=== PATIENT | female | born 1990 | race Caucasian/White ===

== ENCOUNTER 2017-11-23 21:23 | Emergency (ER) | payer BC ==
--- NOTE | 2017-11-23 22:17 | EDM.PDOC ---
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 Stated Complaint: LIGHT PAIN IN STOMACH Time Seen by Provider: 11/23/17 22:15 - History of Present Illness INITIAL COMMENTS - FREE TEXT/NARRATIVE: Entered room to evaluate patient and she had signed out AMA screening exam ED ROS GENERAL - Review of Systems Review Of Systems: See Below (se dictation) ED EXAM - Physical Exam Exam: See Below (see dictation) Departure - Departure Time of Disposition: 22:15 Disposition: Eloped 07 Condition: Good Clinical Impression: Encounter for medical screening examination - Discharge Information Referrals: PCP,None [Primary Care Provider] - Forms: ED Department Discharge, Refusal Medical Screening
== END 2017-11-23 22:19 | disposition left against medical advice (07) ==
LOC: MW.ED 21:23
DX: Z53.21 Procedure and treatment not carried out due to patient leaving prior to being seen by health care provider (principal)

== ENCOUNTER 2017-11-24 14:27 | Emergency (ER) | payer BC ==
--- NOTE | 2017-11-24 14:58 | EDM.PDOC ---
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 This is her first . She had her visit with Dr. Douglass's staff and has an OB visit scheduled for mid November She had some blood on the tissue today when she wiped Review of Systems: As per history of present illness and below otherwise all systems reviewed and negative. Past medical history: As per history of present illness and as reviewed below otherwise noncontributory. Surgical history: As per history of present illness and as reviewed below otherwise noncontributory. Social history: No reported history of drug or alcohol abuse. Family history: As per history of present illness and as reviewed below otherwise noncontributory. Physical exam: Alert and oriented female answering questions appropriately in full sentences without any shortness of breath. She is nontoxic in appearance. She is anxious. Skin is warm and dry. HEENT: Atraumatic, normocehpalic, pupils reactive, negative for conjunctival pallor or scleral icterus, mucous membranes moist, throat clear, neck supple, nontender, trachea midline. Lungs: Clear to auscultation, breath sounds equal bilaterally, chest non tender. Heart: S1S2, regular, negative for clicks, rubs, or JVD. Abdomen: Soft, nondistended, nontender. Negative for masses or hepatossplenmegaly. Negative for costovertebral tenderness. Pelvis: Stable nontender. Genitourinary: Deferred. Rectal: Deferred Extremities: Atraumatic, negative for cords or calf pain. Neurovascular unremarkable. Neuro: Awake, alert, oriented. Cranial nerves II through XII unremarkable. Cerebellum unremarkable. Motor and sensory unremarkable throughout. Exam nonfocal. Have discussed with patient that there are no signs of at this time. Her levels have decreased to 15. It is likely that she will have some bleeding. She is to follow-up with her CLAIMS VICE PRESIDENT. Diagnostics: []ua urine culture, abo/rh cbc ob first trimester US Therapeutics: [] Impression: [Miscarriage Plan: []home Tylenol alternating with ibuprofen every 3 hours for discomfort Follow-up with your CLAIMS VICE PRESIDENT call the clinic for an appointment tell them that you are in the emergency room Definitive disposition and diagnosis as appropriate pending reevaluation and review of above. 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 ED EXAM - Physical Exam Exam: See Below Course - Vital Signs Last Recorded V/S: Last Vital Signs Temp 36.3 C 11/24/17 14:39 Pulse 93 11/24/17 14:39 Resp 18 11/24/17 14:39 BP 124/91 H 11/24/17 14:39 Pulse Ox 100 11/24/17 14:39 - Orders/Labs/Meds Orders: Active Orders 24 hr Category Date Time Status OB 1st Tri Sgl 1st Gest [US] Stat Exams 11/24/17 14:54 Taken CULTURE URINE [RM] Stat Lab 11/24/17 15:10 Received UA W/MICROSCOPIC [URIN] Stat Lab 11/24/17 15:10 Ordered Labs: Laboratory Tests 11/24/17 11/24/17 11/24/17 Range/Units 14:47 14:47 14:47 WBC 6.44 (4.0-11.0) K/uL RBC 4.41 (4.30-5.90) M/uL Hgb 13.2 (12.0-16.0) g/dL Hct 38.3 (36.0-46.0) % MCV 86.8 (80.0-98.0) fL MCH 29.9 (27.0-32.0) pg MCHC 34.5 (31.0-37.0) g/dL RDW Std Deviation 39.6 (28.0-62.0) fl RDW Coeff of Yamel 13 (11.0-15.0) % Plt Count 235 (150-400) K/uL MPV 9.60 (7.40-12.00) fL Neut % (Auto) 56.8 (48.0-80.0) % Lymph % (Auto) 32.5 (16.0-40.0) % [place] % (Auto) 9.0 (0.0-15.0) % Eos % (Auto) 1.2 (0.0-7.0) % Baso % (Auto) 0.5 (0.0-1.5) % Neut # (Auto) 3.7 (1.4-5.7) K/uL Lymph # (Auto) 2.1 (0.6-2.4) K/uL [place] # (Auto) 0.6 (0.0-0.8) K/uL Eos # (Auto) 0.1 (0.0-0.7) K/uL Baso # (Auto) 0.0 (0.0-0.1) K/uL Nucleated RBC % 0.0 /100WBC Nucleated RBCs # 0 K/uL Sodium 137 (136-145) mmol/L Potassium 3.7 (3.5-5.1) mmol/L Chloride 104 (98-107) mmol/L Carbon Dioxide 27.3 (21.0-32.0) mmol/L BUN 5 L (7.0-18.0) mg/dL Creatinine 0.6 (0.6-1.0) mg/dL Est Cr Clr Drug Dosing 122.69 mL/min Estimated GFR (MDRD) > 60.0 ml/min Glucose 84 (74-106) mg/dL Calcium 9.7 (8.5-10.1) mg/dL Total Bilirubin 0.3 (0.2-1.0) mg/dL AST 16 (15-37) IU/L ALT 24 (14-63) IU/L Alkaline Phosphatase 83 (46-116) U/L Total Protein 8.0 (6.4-8.2) g/dL Albumin 3.7 (3.4-5.0) g/dL Globulin 4.3 H (2.0-3.5) g/dL Albumin/Globulin Ratio 0.9 L (1.3-2.8) HCG, Quant mIU/mL Urine Color Urine Appearance Urine pH (5.0-8.0) Ur Specific [place] (1.001-1.035) Urine Protein (NEGATIVE) mg/dL Urine Glucose (UA) (NEGATIVE) mg/dL Urine Ketones (NEGATIVE) mg/dL Urine Occult Blood (NEGATIVE) Urine Nitrite (NEGATIVE) Urine Bilirubin (NEGATIVE) Urine Urobilinogen (<2.0) EU/dL Ur Leukocyte Esterase (NEGATIVE) Urine RBC (0-2/HPF) Urine WBC (0-5/HPF) Ur Epithelial Cells (NONE-FEW) Urine Bacteria (NEGATIVE) Blood Type O NEGATIVE 11/24/17 11/24/17 Range/Units 14:47 15:10 WBC (4.0-11.0) K/uL RBC (4.30-5.90) M/uL Hgb (12.0-16.0) g/dL Hct (36.0-46.0) % MCV (80.0-98.0) fL MCH (27.0-32.0) pg MCHC (31.0-37.0) g/dL RDW Std Deviation (28.0-62.0) fl RDW Coeff of [place]amel (11.0-15.0) % Plt Count (150-400) K/uL MPV (7.40-12.00) fL Neut % (Auto) (48.0-80.0) % Lymph % (Auto) (16.0-40.0) % [place] % (Auto) (0.0-15.0) % Eos % (Auto) (0.0-7.0) % Baso % (Auto) (0.0-1.5) % Neut # (Auto) (1.4-5.7) K/uL Lymph # (Auto) (0.6-2.4) K/uL [place] # (Auto) (0.0-0.8) K/uL Eos # (Auto) (0.0-0.7) K/uL Baso # (Auto) (0.0-0.1) K/uL Nucleated RBC % /100WBC Nucleated RBCs # K/uL Sodium (136-145) mmol/L Potassium (3.5-5.1) mmol/L Chloride (98-107) mmol/L Carbon Dioxide (21.0-32.0) mmol/L BUN (7.0-18.0) mg/dL Creatinine (0.6-1.0) mg/dL Est Cr Clr Drug Dosing mL/min Estimated GFR (MDRD) ml/min Glucose (74-106) mg/dL Calcium (8.5-10.1) mg/dL Total Bilirubin (0.2-1.0) mg/dL AST (15-37) IU/L ALT (14-63) IU/L Alkaline Phosphatase (46-116) U/L Total Protein (6.4-8.2) g/dL Albumin (3.4-5.0) g/dL Globulin (2.0-3.5) g/dL Albumin/Globulin Ratio (1.3-2.8) HCG, Quant 15.0 mIU/mL Urine Color YELLOW Urine Appearance CLEAR Urine pH 7.5 (5.0-8.0) Ur Specific [place] <= 1.005 (1.001-1.035) Urine Protein NEGATIVE (NEGATIVE) mg/dL Urine Glucose (UA) NEGATIVE (NEGATIVE) mg/dL Urine Ketones NEGATIVE (NEGATIVE) mg/dL Urine Occult Blood NEGATIVE (NEGATIVE) Urine Nitrite NEGATIVE (NEGATIVE) Urine Bilirubin NEGATIVE (NEGATIVE) Urine Urobilinogen 0.2 (<2.0) EU/dL Ur Leukocyte Esterase NEGATIVE (NEGATIVE) Urine RBC 0-1 (0-2/HPF) Urine WBC 0-1 (0-5/HPF) Ur Epithelial Cells OCCASIONAL (NONE-FEW) Urine Bacteria RARE (NEGATIVE) Blood Type Departure - Departure Time of Disposition: 16:14 Disposition: Home, Self-Care 01 Condition: Good Clinical Impression: Threatened - Discharge Information *PRESCRIPTION DRUG MONITORING PROGRAM REVIEWED*: Not Applicable *COPY OF PRESCRIPTION DRUG MONITORING REPORT IN PATIENT WILL: Not Applicable Instructions: Pelvic Rest Referrals: PCP,None [Primary Care Provider] - Forms: ED Department Discharge Additional Instructions: The following information is given to patients seen in the emergency department who are being discharged to home. This information is to outline your options for follow-up care. We provide all patients seen in our emergency department with a follow-up referral. The need for follow-up, as well as the timing and circumstances, are variable depending upon the specifics of your emergency department visit. If you don't have a primary care physician on staff, we will provide you with a referral. We always advise you to contact your personal physician following an emergency department visit to inform them of the circumstance of the visit and for follow-up with them and/or the need for any referrals to a consulting specialist. The emergency department will also refer you to a specialist when appropriate. This referral assures that you have the opportunity for followup care with a specialist. All of these measure are taken in an effort to provide you with optimal care, which includes your followup. Under all circumstances we always encourage you to contact your private physician who remains a resource for coordinating your care. When calling for followup care, please make the office aware that this follow-up is from your recent emergency room visit. If for any reason you are refused follow-up, please contact the [facility] emergency department at and asked to speak to the emergency department charge nurse. home Tylenol alternating with ibuprofen every 3 hours for discomfort Follow-up with your CLAIMS VICE PRESIDENT call the clinic for an appointment tell them that you are in the emergency room - My Orders Last 24 Hours: My Active Orders 11/24/17 14:54 OB 1st Tri Sgl 1st Gest [US] Stat 11/24/17 15:10 CULTURE URINE [RM] Stat UA W/MICROSCOPIC [URIN] Stat - Assessment/Plan Last 24 Hours: My Active Orders 11/24/17 14:54 OB 1st Tri Sgl 1st Gest [US] Stat 11/24/17 15:10 CULTURE URINE [RM] Stat UA W/MICROSCOPIC [URIN] Stat
[2017-11-24 15:19] LABS: CHLORIDE,CL 104 mmol/L (98-107); SODIUM,NA 137 mmol/L (136-145)
--- NOTE | 2017-11-25 13:59 | US ---
EXAM DATE: 11/24/17 PATIENT'S AGE: 27 Patient: BEATRIZ FAULKNER Facility: [place], [place] Site . Site : 1990 Study: US OB Pelvis [id number] 3:36:24 PM Ordering Physician: Doctor Zavala Final Report: INDICATION: Pelvic cramping TECHNIQUE: Ultrasound OB pelvis transvaginal. Real time hough scale imaging of the pelvis was performed. COMPARISON: None FINDINGS: Gestational Sac: No intrauterine gestational sac or pole is identified. Uterus: 7.6 x 4.5 x 5.2 cm. The visualized myometrium appears normal. The endometrium is thickened and homogeneous in appearance, measuring 8 mm. Pelvis: The ovaries are of normal size. Arterial blood flow seen in both ovaries. A thick walled corpus luteal cyst is present within the left ovary measuring 1.2 cm. Trace ascites noted. IMPRESSION: 1. No intrauterine IUP is identified. By the 2012 Society of Radiologists in Ultrasound consensus panel criteria, this is a of unknown location. Followup beta HCG and ultrasound is recommended to distinguish between a normal early IUP, complete , or ectopic . Dictated by Gideon Gould MD @ 11/24/2017 3:45:03 PM Dictated by: Gideon Gould MD @ 11/24/2017 15:45:16 (Electronic Signature) Report Signed by Proxy. СЕРГЕЙ
== END 2017-11-24 16:15 | disposition home or self-care (01) ==
LOC: MW.ED 14:27
DX: O20.0 Threatened abortion (principal); Z3A.01 Less than 8 weeks gestation of pregnancy
CPT/HCPCS: 36415; 76801; 76801-26; 80053; 81001; 84702; 85025; 86900; 86901; 87086; 99284-25

== ENCOUNTER 2018-11-01 04:43 | Inpatient (IN) | payer BC, OTHER ==
[2018-11-01] MEDS ORDERED: Lidocaine 1% 50 ML MDV INJECT PRN (05:27)
[2018-11-01] MEDS ORDERED: Nalbuphine 10 MG/1 ML Vial IVPUSH PRN (05:27)
[2018-11-01] MEDS ORDERED: Water For Irrigation,Sterile 1,000 ML Container IRR PRN (05:27)
[2018-11-01] MEDS ORDERED: Sodium Chloride 0.9% 10 ML SDV IV PRN (05:27)
[2018-11-01] MEDS ORDERED: Misoprostol 200 MCG Tab PO PRN (05:27)
[2018-11-01] MEDS ORDERED: Sodium Chloride 0.9% 10 ML Syringe FLUSH PRN (05:27)
[2018-11-01] MEDS ORDERED: Carboprost Tromethamine 250 MCG/1 ML Amp IM PRN (05:27)
[2018-11-01] MEDS ORDERED: Tranexamic Acid 1,000 MG in Sodium Chloride 0.9% 100 ML IV PRN (05:27)
[2018-11-01] MEDS ORDERED: Sodium Chloride 0.9% 2.5 ML Syringe FLUSH PRN (05:27)
[2018-11-01] MEDS ORDERED: Methylergonovine 0.2 MG/1 ML Amp IM PRN (05:27)
[2018-11-01] MEDS ORDERED: Oxytocin/0.9 % Sodium Chloride 30 UNIT/500 ML BAG IV SCH ×2 (05:30→06:15)
[2018-11-01] MEDS ORDERED: Terbutaline 1 MG/ML SDV SUBCUT PRN (06:07)
[2018-11-01] MEDS: Lactated Ringers 1,000 ML IV SCH ×3 (08:50→17:16)
[2018-11-01] MEDS: Butorphanol 1 MG/ML SDV IVPUSH PRN ×2 (09:10→10:53)
[2018-11-01] MEDS ORDERED: Bupivacaine 0.25% 10 ML SDV ONE (11:20)
[2018-11-01] MEDS ORDERED: fentaNYL 100 MCG/2 ML SDV ONE (11:20)
--- NOTE | 2018-11-01 11:28 | HP ---
DATE OF : 1990 PRIMARY CARE PHYSICIAN: Viola Douglass M.D. CHIEF COMPLAINT: Leaking water. HISTORY OF PRESENT ILLNESS: This is a 28-year-old, G2, P0-0-1-0, who presented to Labor and Delivery at 38 weeks and 6 days complaining of rupture of membranes around 4:00 a.m. She had gone to the bathroom and then felt a sudden gush of clear fluid. Upon presentation, she reported no painful contractions, no vaginal bleeding, and movement was present. The patient denies prodromal symptoms or lesions of HSV. PAST SURGICAL HISTORY: Spontaneous in 2018. PAST GYNECOLOGIC HISTORY: In 2018, negative Pap smear; history of Chlamydia; and history of HSV with no outbreaks for the last 9 months. PAST MEDICAL HISTORY: Anxiety and depression. PAST SURGICAL HISTORY: Breast augmentation and wisdom tooth extraction. FAMILY HISTORY: Parents with anxiety and depression. Mother with heart disease. SOCIAL HISTORY: Denies tobacco, alcohol, or drug use. REVIEW OF SYSTEMS: Negative, except in the HPI. ALLERGIES: None. MEDICATIONS: 1. Valacyclovir. 2. Zyrtec. 3. vitamin. PHYSICAL EXAMINATION: VITAL SIGNS: Heart rate 90. PELVIC: Speculum exam: No obvious lesions. Vaginal cervical exam: Fingertip, thick, and high. heart tones one-teens, moderate variability, positive accelerations, negative decelerations. [place]: Contractions every 3 to 5 minutes. ASSESSMENT: A 28-year-old, 2, para 0-0-1-0, at 38 weeks and 6 days gestation with leaking of fluid. 1. Leakage of fluid. AmniSure positive. We will begin Pitocin for induction of labor. 2. Herpes simplex virus, on valacyclovir. No lesions seen on speculum exam. [id number] / MODL /[id number] MTDSlick
--- NOTE | 2018-11-01 12:17 | PCM.PREANE ---
Preanesthetic Assessment - Procedure Proposed Procedure: JOSEPH - Anesthesia/Transfusion/Family Hx Anesthesia History: Prior Anesthesia Without Reaction Family History of Anesthesia Reaction: No - Review of Systems General: No Symptoms Pulmonary: No Symptoms Cardiovascular: No Symptoms Gastrointestinal: No Symptoms, Diarrhea Neurological: No Symptoms Other: Reports: None - Physical Assessment NPO Status Date: 11/01/18 Pulse: 98 O2 Sat by Pulse Oximetry: 99 Respiratory Rate: 18 Height: 1.61 m Weight: 83.915 kg ASA Class: 2E Mental Status: Alert & Oriented x3 Dentition: Reports: Normal Dentition Lungs: Clear to Auscultation, Normal Respiratory Effort Cardiovascular: Regular Rate, Regular Rhythm - Lab Values: Laboratory Last Values WBC 13.88 K/uL (4.0-11.0) H 11/01/18 06:21 RBC 4.27 M/uL (4.30-5.90) L 11/01/18 06:21 Hgb 12.4 g/dL (12.0-16.0) 11/01/18 06:21 Hct 36.7 % (36.0-46.0) 11/01/18 06:21 MCV 85.9 fL (80.0-98.0) 11/01/18 06:21 MCH 29.0 pg (27.0-32.0) 11/01/18 06:21 MCHC 33.8 g/dL (31.0-37.0) 11/01/18 06:21 RDW Std Deviation 40.2 fl (28.0-62.0) 11/01/18 06:21 RDW Coeff of Yamel 13 % (11.0-15.0) 11/01/18 06:21 Plt Count 168 K/uL (150-400) 11/01/18 06:21 MPV 11.20 fL (7.40-12.00) 11/01/18 06:21 Membrane Rupture POSITIVE 11/01/18 04:30 Blood Type O NEGATIVE 11/01/18 06:21 Antibody Screen NEGATIVE 11/01/18 06:21 Antibody Identification Cancelled 11/01/18 06:21 - Allergies Allergies/Adverse Reactions: Allergies Allergy/AdvReac Type Severity Reaction Status Date / Time No Known Allergies Allergy Verified 11/24/17 14:41 - Acknowledgements Anesthesia Type Planned: Epidural Pt an Appropriate Candidate for the Planned Anesthesia: Yes Alternatives and Risks of Anesthesia Discussed w Pt/Guardian: Yes Pt/Guardian Understands and Agrees with Anesthesia Plan: Yes PreAnesthesia Questionnaire - Past Health History Medical/Surgical History: Denies 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: Psychiatric History: Reports: Anxiety - Infectious Disease History Infectious Disease History: Reports: Herpes - Past Surgical History Female Surgical History: Reports: Breast Implant - HOME MEDS Home Medications: Home Meds Mv-Mn/Iron/FA/Herbal/Digestive [ One Tablet] 1 tab DAILY 11/24/17 [ History] Venlafaxine [Effexor] 10 mg PO DAILY 11/24/17 [History] - CURRENT (IN HOUSE) MEDS Current Meds: Current Medications Butorphanol Tartrate (Stadol) 1 mg IVPUSH Q1H PRN PRN Reason: Pain Last Admin: 11/01/18 10:53 Dose: 1 mg Carboprost Tromethamine (Hemabate Ds) 250 mcg IM ASDIRECTED PRN PRN Reason: Post Hemorrhage Tranexamic Acid 1,000 mg/ (Sodium Chloride) 110 mls @ 660 mls/hr IV ONETIME PRN PRN Reason: Bleeding Lactated Ringer's (Ringers, Lactated) 1,000 mls @ 150 mls/hr IV ASDIRECTED GONZÁLEZ Last Admin: 11/01/18 11:30 Dose: 999 mls/hr Oxytocin/Sodium Chloride (Oxytocin 30 Unit/500 Ml-Ns) 30 unit in 500 mls @ 999 mls/hr IV TITRATE GONZÁLEZ Oxytocin/Sodium Chloride (Oxytocin 30 Unit/500 Ml-Ns) 30 unit in 500 mls @ 2 mls/hr IV TITRATE GONZÁLEZ; Protocol Last Admin: 11/01/18 10:05 Dose: 2 munits/min, 2 mls/hr Lidocaine HCl (Xylocaine 1%) 50 ml INJECT ONETIME PRN PRN Reason: Laceration repair Methylergonovine Maleate (Methergine) 0.2 mg IM ASDIRECTED PRN PRN Reason: Post Hemorrhage Misoprostol (Cytotec) 200 mcg PO ONETIME PRN PRN Reason: Post Hemorrhage Nalbuphine HCl (Nubain) 10 mg IVPUSH Q1H PRN PRN Reason: Pain (severe 7-10) Sodium Chloride (Saline Flush) 10 ml FLUSH ASDIRECTED PRN PRN Reason: Keep Vein Open Sodium Chloride (Saline Flush) 2.5 ml FLUSH ASDIRECTED PRN PRN Reason: Keep Vein Open Sodium Chloride (Normal Saline) 10 ml IV ASDIRECTED PRN PRN Reason: IV Use Sterile Water (Sterile Water For Irrigation) 1,000 ml IRR ASDIRECTED PRN PRN Reason: delivery Terbutaline Sulfate (Brethine) 0.25 mg SUBCUT ASDIRECTED PRN PRN Reason: Tacysystole Discontinued Medications Bupivacaine HCl (Sensorcaine-Mpf 0.25%) Confirm Administered Dose 10 ml .ROUTE .STK-MED ONE Stop: 11/01/18 11:21 Fentanyl (Sublimaze) Confirm Administered Dose 100 mcg .ROUTE .STK-MED ONE Stop: 11/01/18 11:21 Fentanyl/Bupivacaine HCl (Yqywtckc-Fivgg-Bw 2 Mcg/Ml-0.125%) Confirm Administered Dose 100 mls @ as directed .ROUTE .STK-MED ONE Stop: 11/01/18 11:21
[2018-11-01] MEDS ORDERED: Witch Hazel Medicated Pads 40/Jar TOP PRN (19:01)
[2018-11-01] MEDS ORDERED: Ondansetron 4 MG/2 ML SDV IVPUSH PRN (19:01)
[2018-11-01] MEDS ORDERED: oxyCODONE 5 MG Tab PO PRN (19:01)
[2018-11-01] MEDS ORDERED: diphenhydrAMINE 50 MG Cap PO PRN (19:01)
[2018-11-01] MEDS ORDERED: Docusate Sodium 100 MG Cap PO PRN (19:01)
[2018-11-01] MEDS ORDERED: Simethicone 80 MG Tab.Chew PO PRN (19:01)
[2018-11-01] MEDS ORDERED: Lanolin 100% Cream 7 GM Tube TOP PRN (19:01)
[2018-11-01] MEDS ORDERED: Aluminum Hydroxide/Magnesium Hydroxide/Simethicone Susp 30 ML Cup PO PRN (19:01)
[2018-11-01] MEDS ORDERED: Benzocaine/Menthol 20%-0.5% Spray 78 GM Cannister TOP PRN (19:01)
[2018-11-01] MEDS ORDERED: Acetaminophen 500 MG Tab PO PRN ×2 (19:01)
[2018-11-01] MEDS ORDERED: Famotidine 20 MG Tab PO PRN (19:01)
[2018-11-01] MEDS ORDERED: Bisacodyl 10 MG Supp RECTAL PRN (19:01)
[2018-11-01] MEDS ORDERED: Ibuprofen 800 MG Tab PO PRN ×2 (19:01→22:03)
--- NOTE | 2018-11-01 19:14 | PCM.OPNOTE ---
- General Post-Op/Procedure Note Date of Surgery/Procedure: 11/01/18 Operative Procedure(s): Spontaneous vaginal delivery Findings: Live male infant, cephalic presentation Apgars 2 (1), 5 (5), 6 (10), 7 (15), 7 (20 min.) Weight pending Arterial cord pH 7.29, base excess -9 Venous cord pH 7.188, base excess -10 Placenta intact with 3-vessel cord Pre Op Diagnosis: 28yo at 38w6d. 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 placed on CPAP and subsequent nasal cannula. transfer to NICU in [place] for higher level of care. Condition: Good Free Text/Narrative:: Dictation #[id number]
--- NOTE | 2018-11-01 21:39 | PCM48HPAN ---
Post Anesthesia Note - EVALUATION WITHIN 48HRS OF ANESTHETIC Vital Signs in Normal Range: Yes Patient Participated in Evaluation: Yes Respiratory Function Stable: Yes Airway Patent: Yes Cardiovascular Function Stable: Yes Hydration Status Stable: Yes Pain Control Satisfactory: Yes Nausea and Vomiting Control Satisfactory: Yes Mental Status Recovered: Yes Pulse Rate: 98 Resp Rate: 18
--- NOTE | 2018-11-02 01:19 | OR ---
SURGEON: Sendy Werner MD DATE OF PROCEDURE: 11/01/2018 PREOPERATIVE DIAGNOSES: 1. A 28-year-old G2, P0-0-1-0 at 38 weeks and 6 days' gestation. 2. Prelabor rupture of membranes. POSTOPERATIVE DIAGNOSES: 1. A 28-year-old G2, P0-0-1-0 at 38 weeks and 6 days' gestation. 2. Prelabor rupture of membranes. PROCEDURE: Spontaneous vaginal delivery. ANESTHESIA: Epidural. PRIMARY SURGEON: Sendy Werner MD. CLINICAL PROVIDER TRAINER: Kristin Hernandes, medical student. ESTIMATED BLOOD LOSS: 200 mL. FINDINGS: Live male in cephalic presentation. score 2 at 1 minute, 5 at 5 minutes, 6 at 10 minutes, 7 at 15 minutes, and 7 at 20 minutes. Weight pending. Arterial cord pH 7.29, base excess -9. Venous cord pH 7.18, base excess -10. Placenta intact with 3-vessel cord. DESCRIPTION OF PROCEDURE: The patient progressed to complete cervical dilation with epidural in place. She was placed in dorsal lithotomy position. She pushed for approximately an hour and a half. Throughout pushing, early heart rate decelerations occurred with pushing; however, fetus recovered to baseline, heart rate in between contractions. The patient progressed to +5 station, pushed and delivered a live male in cephalic presentation. The head was delivered followed by the remainder of the body. The infant was noted to be floppy. The cord was clamped and cut, and the infant was handed off to the awaiting mill crane operator and nurse. The placenta was delivered intact and with 3-vessel cord via the Dixon-Cervantes maneuver. The perineum was inspected and bilateral periurethral lacerations were noted. They were hemostatic without repair. The patient tolerated the procedure well. The fundus was firm below the umbilicus. Lochia was minimal. [id number] / MODL /[id number]
== END 2018-11-01 23:52 | disposition home or self-care (01) | DRG 807 ==
LOC: MW.OBCHECK 04:43 → MW.OB 04:46 → MW.OBCHECK 05:27 → MW.OB 05:27 → OBSVTOIN 17:40
PROVIDERS: ADMIT Obstetrics & Gynecology; ATTEND Obstetrics & Gynecology
PROC: 10E0XZZ Delivery of Products of Conception, External Approach (ICD-10-PCS; principal; 2018-11-01)
PROC: 4A1HXCZ Monitoring of Products of Conception, Cardiac Rate, External Approach (ICD-10-PCS; 2018-11-01)
PROC: 3E033VJ Introduction of Other Hormone into Peripheral Vein, Percutaneous Approach (ICD-10-PCS; 2018-11-01)
PROC: 10H073Z Insertion of Monitoring Electrode into Products of Conception, Via Natural or Artificial Opening (ICD-10-PCS; 2018-11-01)
DX: O98.52 Other viral diseases complicating childbirth (principal); B00.9 Herpesviral infection, unspecified; O99.344 Other mental disorders complicating childbirth; F41.9 Anxiety disorder, unspecified; O76 Abnormality in fetal heart rate and rhythm complicating labor and delivery; F32.9 Major depressive disorder, single episode, unspecified; O71.82 Other specified trauma to perineum and vulva; Z3A.38 38 weeks gestation of pregnancy; Z37.0 Single live birth
CPT/HCPCS: 01967; 59025; 59409; 82803; 84112; 85027; 86850; 86900; 86901; 88307; A9270-GY; J0595; J2590; J3010; J3490; J7120